=== PATIENT | male | born 1990 | race Caucasian/White ===

== ENCOUNTER 2018-10-21 17:41 | Emergency (ER) | payer SELFPAY ==
[~2018-10-21] VITALS: Ht 177.8 cm; Wt 87.1 kg
--- NOTE | 2018-10-21 17:41 | NUR ---
Patient is awake, alert, does not want to talk at this time, able to say his name only, respiration:easy. [employer] officers x2 are at bedside.
--- NOTE | 2018-10-21 17:56 | NUR ---
Pt states taking Psych meds, but unable to recall names and dosages.
--- NOTE | 2018-10-21 18:10 | NUR ---
Dr Segal eyeballed the patient & ordered routine medical clearance diagnotic tests for this patient. The incoming ER doctor Maxim will do the medical clearance for "OK to booK".
--- NOTE | 2018-10-21 18:16 | NUR ---
Patient is now very talkative after the [employer] officers told him that he is being arrested for domestic violence, AOX4, anxious now, notified.
[2018-10-21] MEDS ORDERED: HALOPERIDOL LACTATE 5 MG/1 ML VIAL IM ONE (18:30)
[2018-10-21] MEDS ORDERED: LORAZEPAM 2 MG/1 ML VIAL IM ONE (18:30)
[2018-10-21] MEDS ORDERED: LORAZEPAM 2 MG/1 ML VIAL ONE (18:33)
[2018-10-21] MEDS ORDERED: HALOPERIDOL LACTATE 5 MG/1 ML VIAL ONE (18:33)
[2018-10-21 18:41] LABS: BASOPHILS % (AUTO) 0.3 % (0.0-2.0); EOSINOPHILS # (AUTO) 0.1 K/uL (0.0-0.7); EOSINOPHILS % (AUTO) 1.4 % (0.0-7.0); HEMATOCRIT 42.6 % (36.7-47.1); LYMPHOCYTES # (AUTO) 1.5 K/uL (20.0-40.0); LYMPHOCYTES % (AUTO) 17.6 % (20.5-51.5); MEAN CORPUSCULAR HGB CONC 35 g/dL (32.5-36.3); MEAN CORPUSCULAR VOLUME 93.7 fL (73.0-96.2); MONOCYTES # (AUTO) 0.9 K/uL (2.0-10.0); MONOCYTES % (AUTO) 10.7 % (0.0-11.0); PLATELET COUNT (AUTO) 265 K/uL (152-348); RED BLOOD CELL COUNT(AUTO) 4.55 MIL/uL (4.06-5.63); WHITE BLOOD COUNT (AUTO) 8.5 K/uL (3.6-10.2)
[2018-10-21 18:50] LABS: CARBON DIOXIDE 24 mmol/L (21-32); CHLORIDE 104 mmol/L (98-107); CREATININE 1.2 mg/dL (0.6-1.3); GLUCOSE 98 mg/dL (74-106); POTASSIUM 3.7 mmol/L (3.5-5.1); UREA NITROGEN, BLOOD 6 mg/dL (7-18)
[2018-10-21 18:53] LABS: ETHANOL 79 MG/DL (0-0)
[2018-10-21 18:56] LABS: ACETAMINOPHEN < 2.0 ug/mL (10-30); ALANINE AMINOTRANSFERASE 33 U/L (16-63); ALKALINE PHOSPHATASE 74 U/L (50-136); ASPARTATE AMINOTRANSFERASE 23 U/L (15-37); BILIRUBIN,DIRECT 0.1 mg/dL (0.0-0.2); BILIRUBIN,TOTAL 0.2 mg/dL (0.2-1.0); TOTAL PROTEIN, SERUM 7.7 g/dL (6.4-8.2)
--- NOTE | 2018-10-21 19:09 | NUR ---
Recieved report from [facility] pt. medically cleared per Dr. Pan, [facility] Unit #[id number] w/ pt. to book for custody, A/Ox3, no acute distress,
== END 2018-10-21 19:15 ==
LOC: EDBD 17:42 → ER 17:42
DX: Z02.89 Encounter for other administrative examinations (principal); F10.10 Alcohol abuse, uncomplicated; R06.02 Shortness of breath
CPT/HCPCS: 36415; 71045; 80048; 80076; 85025; 93005; 96372 ×2; 99284; G0480 ×2; G0481; J1630; J2060; A4663